=== PATIENT | male | born 1960 | race Caucasian/White ===

== ENCOUNTER 2016-11-23 08:46 | Inpatient (IN) | payer OTHER ==
[2016-11-23 09:09] VITALS: BMI 25.1
--- NOTE | 2016-11-23 12:10 | HP ---
CIWA Score - CIWA Score Nausea/Vomitin-No Nausea/No Vomiting Muscle Tremors: 4-Moderate,w/Arms Extend Anxiety: 5 Agitation: 4-Moderately Restless Paroxysmal Sweats: 1-Minimal Palms Moist Orientation: 0-Oriented Tacttile Disturbances: 3-Moderate Itch/Numb/Burn Auditory Disturbances: 0-None Visual Disturbances: 0-None Headache: 0-None Present CIWA-Ar Total Score: 17 Admission ROS S - HPI Chief Complaint: DETOX TX FOR XANAX AND ALCOHOL DEPENDENCE Allergies/Adverse Reactions: Allergies Allergy/AdvReac Type Severity Reaction Status Date / Time Fish Containing Products Allergy Severe UNSPECIFIED Verified 11/23/16 10:08 [Fish Product Derivatives] ALLERGY TO SEAFOOD shellfish derived Allergy Severe UNSPECIFIED Verified 11/23/16 10:08 ALLERGY TO SEAFOOD Seafood Allergy Severe Uncoded 11/23/16 10:08 History of Present Illness: 55 Y/O MALE WITH A HX XANAX AND ALCOHOL DEPENDENCE SEEKING DETOX TX. PREVIOUS TX EPISODE. 2 YEARS SOBRIETY IN THE PAST. - Ebola screening Have you traveled outside of the country in the last 21 days: No Have you had contact with anyone from an Ebola affected area: No Have you been sick,other than usual withdrawal symptoms: No - Review of Systems Constitutional: Changes in sleep EENT: reports: Blurred Vision (WEARS GLASSES) Respiratory: reports: No Symptoms reported Cardiac: reports: No Symptoms Reported GI: reports: No Symptoms Reported : reports: Frequency Musculoskeletal: reports: Back Pain, Joint Pain, Muscle Pain Integumentary: reports: Dryness, Lesions (FACIAL RASH/FLAKINESS), Pruritus, Rash (HX ECZEMA) Neuro: reports: Headache, Seizure, Tremors, Unsteady Gait, Dizziness Endocrine: reports: No Symptoms Reported Hematology: reports: No Symptoms Reported Psychiatric: reports: Orientated x3, Anxious, Depressed Other Systems: Reviewed and Negative Patient History - Patient Medical History Hx Anemia: No Hx Asthma: No Hx Chronic Obstructive Pulmonary Disease (COPD): No Hx Cardiac Disorders: No Hx Hypertension: No Hx Hypercholesterolemia: No Hx Seizures: Yes (many yrs ago) Hx Diabetes: No Hx Gastrointestinal Disorders: No Hx Genitourinary Disorders: No Hx Sexually Transmitted Disorders: No Hx Renal Disease (ESRD): No Hx Human Immunodeficiency Virus (HIV): No (NEGATIVE HX) Hx Hepatitis C: No Hx Depression: Yes (ON MED) Hx Suicide Attempt: Yes (OD ON PILLS X2;CUT WRIST X1;DENIES CURRENT IDEATIONS.) Hx Bipolar Disorder: Yes Hx Schizophrenia: Yes (SCHIZO-AFFECTIVE --VISUAL HALLUCINATIONS AND DELUSIONS) - Patient Surgical History Past Surgical History: Yes Hx Neurologic Surgery: No Hx Cataract Extraction: No Hx Cardiac Surgery: No Hx Lung Surgery: No Hx Breast Surgery: No Hx Breast Biopsy: No Hx Abdominal Surgery: No Hx Appendectomy: No Hx Cholecystectomy: No Hx Genitourinary Surgery: No Hx Orthopedic Surgery: No Other Surgical History: tendon repair, left hand in 2012 Anesthesia Reaction: No - PPD History Previous Implant?: Yes Documented Results: Negative w/o proof Implanted On Prior [facility] Admission?: Yes Date: 01/21/12 PPD to be Administered?: Yes - Reproductive History Patient is a Female of Child Bearing Age (11 -55 yrs old): No (MALE) Patient : (N/A) - Smoking Cessation Smoking history: Current every day smoker Have you smoked in the past 12 months: Yes Aproximately how many cigarettes per day: 7 Hx Chewing Tobacco Use: No Initiated information on smoking cessation: Yes 'Breaking Loose' booklet given: 11/23/16 - Substance & Tx. History Hx Alcohol Use: Yes (VODKA) Hx Substance Use: Yes (XANAX/COCAINE) Substance Use Type: Alcohol, Cocaine, Tranquilizers Hx Substance Use Treatment: Yes - Substances Abused Alcohol Route: Oral Frequency: Daily Amount used: vodka(1/2pint) Age of first use: 19 Date of Last Use: 11/22/16 Alprazolam (Xanax) Route: Oral Frequency: Daily Amount used: 2-3 stiks Age of first use: 52 Date of Last Use: 11/22/16 Cocaine Route: Inhalation Frequency: Daily Amount used: $20 Age of first use: 20 Date of Last Use: 11/21/16 Family Disease History - Family Disease History Family Disease History: Respiratory: Mother (COPD-) Admission Physical Exam S - Vital Signs Vital Signs: Vital Signs - 24 hr 11/23/16 09:06 Temperature 96.4 F L Pulse Rate 55 L Respiratory 20 Rate Blood Pressure 111/73 - Physical General Appearance: Yes: Moderate Distress, Irritable, Anxious HEENTM: Yes: EOMI, Normocephalic, GELACIO, Pharynx Normal Respiratory: Yes: Chest Non-Tender, Lungs Clear, Normal Breath Sounds, No Respiratory Distress Neck: Yes: No masses,lesions,Nodules, Supple, Trachea in good position Breast: Yes: Breast Exam Deferred Cardiology: Yes: Regular Rhythm, S1, S2, Bradycardia Abdominal: Yes: Normal Bowel Sounds, Non Tender, Flat, Soft Genitourinary: Yes: Other (N/C) Back: Yes: Within Normal Limits Musculoskeletal: Yes: full range of Motion, Gait Steady Extremities: Yes: Normal Range of Motion, Non-Tender 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 NML intact, Fully Oriented, Alert, Motor Strength 5/5 Integumentary: Yes: Dry, Warm Lymphatic: Yes: Within Normal Limits - Diagnostic (1) Seizure disorder Current Visit: Yes Status: Chronic (2) Alcohol dependence with uncomplicated withdrawal Current Visit: Yes Status: Acute (3) Sedative, hypnotic or anxiolytic dependence with withdrawal, uncomplicated Current Visit: Yes Status: Acute (4) Cocaine dependence, uncomplicated Current Visit: Yes Status: Acute Cleared for Admission [facility] - Detox or Rehab [facility] Level of Care: Medically Managed Detox Regimen/Protocol: Valium [facility] Breath Alcohol Content Breath Alcohol Content: 0 Urine Drug Screen - Results Drug Screen Negative: No Urine Drug Screen Results: ERVIN-Cocaine, BZO-Benzodiazepines
[2016-11-23] MEDS ORDERED: hydrOXYzine PAMOATE 50 MG CAPSULE (FP) PO PRN (12:28)
[2016-11-23] MEDS ORDERED: MENTHOL/PHENOL 1 EACH UD MM PRN (12:28)
[2016-11-23] MEDS ORDERED: diphenhydrAMINE HCL 50 MG CAPSULE PO PRN (12:28)
[2016-11-23] MEDS ORDERED: guaiFENesin/D-METHORPHAN HB 10 ML UNIT-DOSE CUPS PO PRN (12:28)
[2016-11-23] MEDS ORDERED: MAGNESIUM CITRATE 300 ML BOTTLE PO PRN (12:28)
[2016-11-23] MEDS ORDERED: NICOTINE POLACRILEX 2 MG GUM BC PRN (12:28)
[2016-11-23] MEDS ORDERED: MAG HYDROX/AL HYDROX/SIMETH 30 ML UNIT-DOSE CUP PO PRN (12:28)
[2016-11-23] MEDS ORDERED: P-EPHED 60MG/TRIPROLIDI 2.5MG TABLET PO PRN (12:28)
[2016-11-23] MEDS ORDERED: MAGNESIUM HYDROX 2400MG/30ML ORAL SUSPENSION 30 ML CUP PO PRN (12:28)
[2016-11-23] MEDS ORDERED: LOPERAMIDE HCL 2 MG CAPSULE PO PRN (12:28)
[2016-11-23] MEDS ORDERED: diazePAM 5 MG TABLET PO ONE (13:30)
[2016-11-23] MEDS: HYDROCORTISONE 1% TOPICAL CREAM 30 GM TUBE TP SCH ×2 (13:44→22:50)
[2016-11-23] MEDS: NICOTINE 14 MG/24 HOURS TOPICAL PATCH TD SCH (13:45)
[2016-11-23] MEDS: IBUPROFEN 400 MG TABLET (FP) PO PRN (13:47)
--- NOTE | 2016-11-23 14:10 | CONSULT ---
[facility] Psychiatric Consult - Data Date of interview: 11/23/16 Admission source: [facility] Identifying data: This is 55 years old male with history of Bipolar disorder, psychiatric hospitalization history, intoxicuated with: Alcohol, Copciane, Xanax and Nicotine Substance Abuse History: Smoking history: Current every day smoker. Have you smoked in the past 12 months: Yes. Aproximately how many cigarettes per day: 7. Hx Chewing Tobacco Use: No. Initiated information on smoking cessation: Yes. 'Breaking Loose' booklet given: 11/23/16. - Substance & Tx. History. Hx Alcohol Use: Yes (VODKA). Hx Substance Use: Yes (XANAX/COCAINE). Substance Use Type: Alcohol, Cocaine, Tranquilizers. Hx Substance Use Treatment: Yes. - Substances Abused. Alcohol. Route: Oral. Frequency: Daily. Amount used: vodka(1/2pint). Age of first use: 19. Date of Last Use: 11/22/16. Alprazolam (Xanax). Route: Oral. Frequency: Daily. Amount used: 2-3 stiks. Age of first use: 52. Date of Last Use: 11/22/16. Cocaine. Route: Inhalation. Frequency: Daily. Amount used: $20. Age of first use: 20. Date of Last Use: 11/21/16 Medical History: Seizure history, Psychiatric History: Patient reports history of Bipolar disorder with most recent psychioatric admission on 2012 at [facility] for safety, reports taking prior to admission: Seroquel 25mg po bid. Seroquel 100mg po qhs. Buspar 10mg po tid. Wellbutrin XL; 150mg poqd. Depakote 500mg po qhs. Gabapentin 200mg po bid Physical/Sexual Abuse/Trauma History: Denies Additional Comment: Seroquel 25mg po bid. Seroquel 100mg po qhs. Buspar 10mg po tid. Wellbutrin XL; 150mg poqd. Depakote 500mg po qhs. Gabapentin 200mg po bid Mental Status Exam - Mental Status Exam Alert and Oriented to: Person Cognitive Function: Fair Patient Appearance: Well Groomed Mood: Nervous, Anxious Affect: Labile Patient Behavior: Cooperative Speech Pattern: Excessive, Pressured Voice Loudness: Mildly Loud Thought Process: Goal Oriented Thought Disorder: Being Controlled Hallucinations: Denies Suicidal Ideation: Denies Homicidal Ideation: Denies Insight/Judgement: Fair Sleep: Fair Appetite: Weight loss Muscle strength/Tone: Normal Gait/Station: Normal Additional Comments: Seroquel 25mg po bid. Seroquel 100mg po qhs. Buspar 10mg po tid. Wellbutrin XL; 150mg poqd. Depakote 500mg po qhs. Gabapentin 200mg po bid Psychiatric Findings - Problem List ([place] 1, 2,3) (1) Alcohol dependence with uncomplicated withdrawal Current Visit: Yes Status: Acute (2) Cocaine dependence, uncomplicated Current Visit: Yes Status: Acute (3) Sedative, hypnotic or anxiolytic dependence with withdrawal, uncomplicated Current Visit: Yes Status: Acute (4) Seizure disorder Current Visit: Yes Status: Chronic (5) Bipolar disorder Current Visit: Yes Status: Acute - Initial Treatment Plan Initial Treatment Plan: Seroquel 25mg po bid. Seroquel 100mg po qhs. Buspar 10mg po tid. Wellbutrin XL; 150mg poqd. Depakote 500mg po qhs. Gabapentin 200mg po bid
[2016-11-23] MEDS: diazePAM 5 MG TABLET PO SCH ×2 (14:13→22:20)
[2016-11-23] MEDS: SELENIUM SULFIDE 2.5% LOTION 4 OZ. TP SCH (15:57)
[2016-11-23] MEDS: diazePAM 5 MG TABLET PO PRN (17:17)
[2016-11-23] MEDS: QUEtiapine FUMARATE 25 MG TABLET (FP) PO SCH (17:17)
[2016-11-23] MEDS: QUEtiapine FUMARATE 100 MG TABLET (FP) PO SCH (22:20)
[2016-11-23] MEDS: GABAPENTIN 100 MG CAPSULE (FP) PO SCH (22:20)
[2016-11-23] MEDS: THIAMINE HCL 100 MG TABLET (FP) PO SCH (22:20)
[2016-11-23] MEDS: DIVALPROEX SODIUM 500 MG TABLET E.C. PO SCH (22:21)
[2016-11-23] MEDS: busPIRone HCL 10 MG TABLET (FP) PO SCH (22:21)
[2016-11-23 22:36] LABS: URINE APPEARANCE CLEAR; URINE BILIRUBIN NEGATIVE (NEGATIVE); URINE BLOOD 1+ (NEGATIVE); URINE COLOR YELLOW; URINE GLUCOSE (UA) NEGATIVE (NEGATIVE); URINE KETONE NEGATIVE (NEGATIVE); URINE LEUK ESTERASE NEGATIVE (NEGATIVE); URINE NITRITE NEGATIVE (NEGATIVE); URINE PROTEIN NEGATIVE (NEGATIVE); URINE UROBILINOGEN NEGATIVE mg/dL (0.2-1.0)
[2016-11-23 23:07] LABS: URINE MUCUS RARE; URINE RBC 7 /hpf (0-3); URINE WBC 2 /hpf (3-5)
[2016-11-24] MEDS: diazePAM 5 MG TABLET PO SCH ×3 (05:35→22:26)
[2016-11-24] MEDS: busPIRone HCL 10 MG TABLET (FP) PO SCH ×3 (05:35→22:26)
[2016-11-24 09:43] LABS: HIV 1 & 2 AB NEGATIVE; HIV 1 AGp24 NEGATIVE
[2016-11-24] MEDS: PRENATAL VITAMINS W/ FOLIC ACID TABLET (FP) PO SCH (10:44)
[2016-11-24] MEDS: QUEtiapine FUMARATE 25 MG TABLET (FP) PO SCH ×2 (10:44→17:30)
[2016-11-24] MEDS: GABAPENTIN 100 MG CAPSULE (FP) PO SCH ×2 (10:44→22:26)
[2016-11-24] MEDS: SELENIUM SULFIDE 2.5% LOTION 4 OZ. TP SCH (10:45)
[2016-11-24] MEDS: NICOTINE 14 MG/24 HOURS TOPICAL PATCH TD SCH (10:45)
[2016-11-24] MEDS: HYDROCORTISONE 1% TOPICAL CREAM 30 GM TUBE TP SCH ×2 (10:45→22:55)
[2016-11-24] MEDS: IBUPROFEN 400 MG TABLET (FP) PO PRN (10:46)
[2016-11-24] MEDS: diazePAM 5 MG TABLET PO PRN ×2 (10:49→18:26)
--- NOTE | 2016-11-24 10:50 | PN ---
[facility] CIWA - CIWA Score Nausea/Vomitin Muscle Tremors: 3 Anxiety: 3 Agitation: 3 Paroxysmal Sweats: 1-Minimal Palms Moist Orientation: 1-Uncertain about Date Tacttile Disturbances: 1-Very Mild Itch/Numbness Auditory Disturbances: 1-Very Mild Visual Disturbances: 0-None Headache: 2-Mild CIWA-Ar Total Score: 18 S Progress Note (SOAP) Subjective: ALERT,IRRITABLE,ANXIOUS,INTERRUPTED SLEEP,TREMOR Objective: 11/24/16 10:48 Vital Signs Temperature 97.2 F L 11/24/16 06:00 Pulse Rate 52 L 11/24/16 06:00 Respiratory Rate 18 11/24/16 06:00 Blood Pressure 111/62 11/24/16 06:00 O2 Sat by Pulse Oximetry (%) EKG SINUS BRADYCARDIA 57/MIN NO CHEST PAIN,NO SOB,NO DIZZINESS Laboratory Last Values Urine Color Yellow 11/23/16 22:20 Urine Appearance Clear 11/23/16 22:20 Urine pH 5.0 (5.0-8.0) 11/23/16 22:20 Urine Protein Negative (NEGATIVE) 11/23/16 22:20 Urine Glucose (UA) Negative (NEGATIVE) 11/23/16 22:20 Urine Ketones Negative (NEGATIVE) 11/23/16 22:20 Urine Blood 1+ (NEGATIVE) H 11/23/16 22:20 Urine Nitrite Negative (NEGATIVE) 11/23/16 22:20 Urine Bilirubin Negative (NEGATIVE) 11/23/16 22:20 Urine Urobilinogen Negative mg/dL (0.2-1.0) 11/23/16 22:20 Ur Leukocyte Esterase Negative (NEGATIVE) 11/23/16 22:20 Urine RBC 7 /hpf (0-3) 11/23/16 22:20 Urine WBC 2 /hpf (3-5) 11/23/16 22:20 Ur Epithelial Cells Rare /hpf (FEW) 11/23/16 22:20 Urine Mucus Rare 11/23/16 22:20 HIV 1&2 Antibody Screen Negative 11/23/16 11:15 HIV P24 Antigen Negative 11/23/16 11:15 LABS PENDING Assessment: 11/24/16 10:49 WITHDRAWAL SYMPTOM Plan: CONTINUE DETOX
[2016-11-24 12:31] LABS: ALBUMIN 4.2 g/dl (3.4-5.0); ANION GAP 6 (8-16); CALCIUM 9.6 mg/dL (8.5-10.1); CO2 30 mmol/L (21-32); GLUCOSE,RANDOM 76 mg/dL (74-106); SGPT/ALT 23 U/L (12-78)
[2016-11-24 12:34] LABS: ALK PHOS 90 U/L (45-117); BILIRUBIN,TOTAL 0.5 mg/dL (0.2-1.0); MCH 31.6 pg (25.7-33.7); MCHC 33.3 g/dl (32.0-35.9); MEAN CELL VOLUME 94.8 fl (80-96); MEAN PLT VOLUME 8.6 fl (7.5-11.1); PLATELET COUNT 256 K/MM3 (134-434); RDW 13.8 % (11.9-15.9); SGOT/AST 21 U/L (15-37); TOT PROT 7.4 g/dl (6.4-8.2); WHITE BLOOD COUNT 6.4 K/mm3 (4.0-10.0)
[2016-11-24] MEDS: THIAMINE HCL 100 MG TABLET (FP) PO SCH (22:26)
[2016-11-24] MEDS: DIVALPROEX SODIUM 500 MG TABLET E.C. PO SCH (22:26)
[2016-11-24] MEDS: QUEtiapine FUMARATE 100 MG TABLET (FP) PO SCH (22:26)
[2016-11-25] MEDS: diazePAM 5 MG TABLET PO PRN ×2 (05:59→14:38)
[2016-11-25] MEDS: busPIRone HCL 10 MG TABLET (FP) PO SCH ×3 (05:59→22:06)
[2016-11-25] MEDS: PRENATAL VITAMINS W/ FOLIC ACID TABLET (FP) PO SCH (10:42)
[2016-11-25] MEDS: SELENIUM SULFIDE 2.5% LOTION 4 OZ. TP SCH (10:42)
[2016-11-25] MEDS: QUEtiapine FUMARATE 25 MG TABLET (FP) PO SCH ×2 (10:42→17:23)
[2016-11-25] MEDS: GABAPENTIN 100 MG CAPSULE (FP) PO SCH ×2 (10:42→22:05)
[2016-11-25] MEDS: diazePAM 5 MG TABLET PO SCH ×2 (10:42→22:06)
[2016-11-25] MEDS: HYDROCORTISONE 1% TOPICAL CREAM 30 GM TUBE TP SCH ×2 (10:43→22:58)
[2016-11-25] MEDS: NICOTINE 14 MG/24 HOURS TOPICAL PATCH TD SCH (10:43)
[2016-11-25] MEDS: IBUPROFEN 400 MG TABLET (FP) PO PRN (10:45)
--- NOTE | 2016-11-25 11:09 | PN ---
S CIWA - CIWA Score Nausea/Vomitin Muscle Tremors: 3 Anxiety: 3 Agitation: 2 Paroxysmal Sweats: 1-Minimal Palms Moist Orientation: 0-Oriented Tacttile Disturbances: 1-Very Mild Itch/Numbness Auditory Disturbances: 1-Very Mild Visual Disturbances: 0-None Headache: 2-Mild CIWA-Ar Total Score: 16 BHS Progress Note (SOAP) Subjective: ALERT,IRRITABLE,ANXIOUS,INTERRUPTED SLEEP,TREMOR,PAIN N THE BODY Objective: 11/25/16 11:08 Vital Signs Temperature 97.7 F 11/25/16 09:57 Pulse Rate 77 11/25/16 09:57 Respiratory Rate 18 11/25/16 09:57 Blood Pressure 112/79 11/25/16 09:57 O2 Sat by Pulse Oximetry (%) Laboratory Last Values WBC 6.4 K/mm3 (4.0-10.0) D 11/24/16 06:15 RBC 4.28 M/mm3 (4.00-5.60) 11/24/16 06:15 Hgb 13.5 GM/dL (11.7-16.9) 11/24/16 06:15 Hct 40.6 % (35.4-49) 11/24/16 06:15 MCV 94.8 fl (80-96) 11/24/16 06:15 MCH 31.6 pg (25.7-33.7) 11/24/16 06:15 MCHC 33.3 g/dl (32.0-35.9) 11/24/16 06:15 RDW 13.8 % (11.9-15.9) 11/24/16 06:15 Plt Count 256 K/MM3 (134-434) 11/24/16 06:15 MPV 8.6 fl (7.5-11.1) 11/24/16 06:15 Sodium 139 mmol/L (136-145) 11/24/16 06:15 Potassium 4.2 mmol/L (3.5-5.1) 11/24/16 06:15 Chloride 103 mmol/L (98-107) 11/24/16 06:15 Carbon Dioxide 30 mmol/L (21-32) 11/24/16 06:15 Anion Gap 6 (8-16) L 11/24/16 06:15 BUN 15 mg/dL (7-18) 11/24/16 06:15 Creatinine 1.0 mg/dL (0.7-1.3) 11/24/16 06:15 Creat Clearance w eGFR > 60 (>60) 11/24/16 06:15 Random Glucose 76 mg/dL (74-106) D 11/24/16 06:15 Calcium 9.6 mg/dL (8.5-10.1) 11/24/16 06:15 Total Bilirubin 0.5 mg/dL (0.2-1.0) 11/24/16 06:15 AST 21 U/L (15-37) D 11/24/16 06:15 ALT 23 U/L (12-78) 11/24/16 06:15 Alkaline Phosphatase 90 U/L (45-117) D 11/24/16 06:15 Total Protein 7.4 g/dl (6.4-8.2) 11/24/16 06:15 Albumin 4.2 g/dl (3.4-5.0) 11/24/16 06:15 Urine Color Yellow 11/23/16 22:20 Urine Appearance Clear 11/23/16 22:20 Urine pH 5.0 (5.0-8.0) 11/23/16 22:20 Ur Specific [place] >= 1.030 (1.005-1.025) H 11/23/16 22:20 Urine Protein Negative (NEGATIVE) 11/23/16 22:20 Urine Glucose (UA) Negative (NEGATIVE) 11/23/16 22:20 Urine Ketones Negative (NEGATIVE) 11/23/16 22:20 Urine Blood 1+ (NEGATIVE) H 11/23/16 22:20 Urine Nitrite Negative (NEGATIVE) 11/23/16 22:20 Urine Bilirubin Negative (NEGATIVE) 11/23/16 22:20 Urine Urobilinogen Negative mg/dL (0.2-1.0) 11/23/16 22:20 Ur Leukocyte Esterase Negative (NEGATIVE) 11/23/16 22:20 Urine RBC 7 /hpf (0-3) 11/23/16 22:20 Urine WBC 2 /hpf (3-5) 11/23/16 22:20 Ur Epithelial Cells Rare /hpf (FEW) 11/23/16 22:20 Urine Mucus Rare 11/23/16 22:20 HIV 1&2 Antibody Screen Negative 11/23/16 11:15 HIV P24 Antigen Negative 11/23/16 11:15 Assessment: 11/25/16 11:08 WITHDRAWAL SYMPTOM Plan: CONTINUE DETOX
--- NOTE | 2016-11-25 14:52 | EKG ---
Test Reason : Blood Pressure : / mmHG Vent. Rate : 057 BPM Atrial Rate : 057 BPM P-R Int : 138 ms QRS Dur : 108 ms QT Int : 414 ms P-R-T Axes : 048 069 059 degrees QTc Int : 402 ms SINUS BRADYCARDIA OTHERWISE NORMAL ECG NO PREVIOUS ECGS AVAILABLE Confirmed by SAQIB SOLIS MD ([id number]) on 11/25/2016 2:51:37 PM Referred By: Confirmed By:SAQIB SOLIS MD
[2016-11-25] MEDS: ACETAMINOPHEN 325 MG TABLET (FP) PO PRN ×2 (15:31→22:07)
[2016-11-25] MEDS: THIAMINE HCL 100 MG TABLET (FP) PO SCH (22:06)
[2016-11-25] MEDS: QUEtiapine FUMARATE 100 MG TABLET (FP) PO SCH (22:06)
[2016-11-25] MEDS: DIVALPROEX SODIUM 500 MG TABLET E.C. PO SCH (22:06)
[2016-11-26] MEDS: busPIRone HCL 10 MG TABLET (FP) PO SCH (05:13)
[2016-11-26] MEDS: diazePAM 5 MG TABLET PO PRN (05:14)
[2016-11-26 06:20] VITALS: BP 113/67; PULSE 58; TEMP 97.2
--- NOTE | 2016-11-26 09:01 | PN ---
[facility] Progress Note Note: Pt.was transferred from [facility] after a verbal altercation. This morning patient began to insult his peers creating an unsafe situation. Staff intervened but Mr. Roberto would not stop. Security was called and pt. was d/c for non- compliance with unit's rules. At the time of d/c he was medically stable.
--- NOTE | 2016-11-26 09:04 | DS ---
[facility] Detox Discharge Summary Admission Date: 11/23/16 Discharge Date: 11/26/16 - History Present History: Alcohol Dependence, Cocaine Dependence, Sedative Dependence Pertinent Past History: Mood disorder - Physical Exam Results Vital Signs: Vital Signs Temperature 97.2 F L 11/26/16 06:13 Pulse Rate 58 L 11/26/16 06:13 Respiratory Rate 16 11/26/16 06:13 Blood Pressure 113/67 11/26/16 06:13 O2 Sat by Pulse Oximetry (%) Pertinent Admission Physical Exam Findings: Withdrawal sx. Laboratory Last Values WBC 6.4 K/mm3 (4.0-10.0) D 11/24/16 06:15 RBC 4.28 M/mm3 (4.00-5.60) 11/24/16 06:15 Hgb 13.5 GM/dL (11.7-16.9) 11/24/16 06:15 Hct 40.6 % (35.4-49) 11/24/16 06:15 MCV 94.8 fl (80-96) 11/24/16 06:15 MCH 31.6 pg (25.7-33.7) 11/24/16 06:15 MCHC 33.3 g/dl (32.0-35.9) 11/24/16 06:15 RDW 13.8 % (11.9-15.9) 11/24/16 06:15 Plt Count 256 K/MM3 (134-434) 11/24/16 06:15 MPV 8.6 fl (7.5-11.1) 11/24/16 06:15 Sodium 139 mmol/L (136-145) 11/24/16 06:15 Potassium 4.2 mmol/L (3.5-5.1) 11/24/16 06:15 Chloride 103 mmol/L (98-107) 11/24/16 06:15 Carbon Dioxide 30 mmol/L (21-32) 11/24/16 06:15 Anion Gap 6 (8-16) L 11/24/16 06:15 BUN 15 mg/dL (7-18) 11/24/16 06:15 Creatinine 1.0 mg/dL (0.7-1.3) 11/24/16 06:15 Creat Clearance w eGFR > 60 (>60) 11/24/16 06:15 Random Glucose 76 mg/dL (74-106) D 11/24/16 06:15 Calcium 9.6 mg/dL (8.5-10.1) 11/24/16 06:15 Total Bilirubin 0.5 mg/dL (0.2-1.0) 11/24/16 06:15 AST 21 U/L (15-37) D 11/24/16 06:15 ALT 23 U/L (12-78) 11/24/16 06:15 Alkaline Phosphatase 90 U/L (45-117) D 11/24/16 06:15 Total Protein 7.4 g/dl (6.4-8.2) 11/24/16 06:15 Albumin 4.2 g/dl (3.4-5.0) 11/24/16 06:15 Urine Color Yellow 11/23/16 22:20 Urine Appearance Clear 11/23/16 22:20 Urine pH 5.0 (5.0-8.0) 11/23/16 22:20 Ur Specific [place] >= 1.030 (1.005-1.025) H 11/23/16 22:20 Urine Protein Negative (NEGATIVE) 11/23/16 22:20 Urine Glucose (UA) Negative (NEGATIVE) 11/23/16 22:20 Urine Ketones Negative (NEGATIVE) 11/23/16 22:20 Urine Blood 1+ (NEGATIVE) H 11/23/16 22:20 Urine Nitrite Negative (NEGATIVE) 11/23/16 22:20 Urine Bilirubin Negative (NEGATIVE) 11/23/16 22:20 Urine Urobilinogen Negative mg/dL (0.2-1.0) 11/23/16 22:20 Ur Leukocyte Esterase Negative (NEGATIVE) 11/23/16 22:20 Urine RBC 7 /hpf (0-3) 11/23/16 22:20 Urine WBC 2 /hpf (3-5) 11/23/16 22:20 Ur Epithelial Cells Rare /hpf (FEW) 11/23/16 22:20 Urine Mucus Rare 11/23/16 22:20 RPR Titer Nonreactive (NONREACTIVE) 11/24/16 06:15 HIV 1&2 Antibody Screen Negative 11/23/16 11:15 HIV P24 Antigen Negative 11/23/16 11:15 labs noted - Treatment Patient has Accepted a Rehab Referral to: Self help meetings - Medication Discharge Medications: Ambulatory Orders Bupropion HCl [Wellbutrin Xl -] 150 mg PO DAILY 11/23/16 Bupropion HCl [Wellbutrin Xl -] 150 mg PO DAILY #30 tab.sr.24h 11/23/16 Buspirone HCl [Buspar -] 10 mg PO TID 11/23/16 Buspirone HCl [Buspar -] 10 mg PO TID #90 tablet 11/23/16 Divalproex *ER* [Depakote *ER* -] 500 mg PO HS 11/23/16 Divalproex *ER* [Depakote *ER* -] 500 mg PO HS #30 tablet.sa 11/23/16 Gabapentin 200 mg PO BID #60 capsule 11/23/16 Gabapentin [Neurontin -] 200 mg PO BID 11/23/16 Hydrocortisone/Aloe Vera [Cortizone-10 1% Creme] 28 gm TP BID 11/23/16 Quetiapine Fumarate [Seroquel -] 25 mg PO BID 11/23/16 Quetiapine Fumarate [Seroquel -] 25 mg PO BID #60 tablet 11/23/16 Quetiapine Fumarate [Seroquel -] 100 mg PO HS 11/23/16 Quetiapine Fumarate [Seroquel] 100 mg PO HS #30 tablet 11/23/16 Tramadol HCl [Ultram] 50 mg PO Q8H 11/23/16 - Diagnosis (1) Alcohol dependence with uncomplicated withdrawal Status: Acute (2) Bipolar disorder Status: Acute (3) Cocaine dependence, uncomplicated Status: Acute (4) Sedative, hypnotic or anxiolytic dependence with withdrawal, uncomplicated Status: Acute (5) Seizure disorder Status: Chronic - AMA Did Patient Leave Against Medical Advice: No
[2016-11-27] MEDS ORDERED: diazePAM 5 MG TABLET PO SCH (10:00)
== END 2016-11-26 08:21 | disposition home or self-care (01) | DRG 774 ==
LOC: YASAS 08:46 → Y6N 12:37 → Y3N 11-25 22:40
PROVIDERS: ADMIT Internal Medicine; ATTEND Internal Medicine
PROC: HZ2ZZZZ Detoxification Services for Substance Abuse Treatment (ICD-10-PCS; principal; 2016-11-23)
DX: F13.230 Sedative, hypnotic or anxiolytic dependence with withdrawal, uncomplicated (principal); F10.230 Alcohol dependence with withdrawal, uncomplicated; F14.20 Cocaine dependence, uncomplicated; F17.210 Nicotine dependence, cigarettes, uncomplicated; F31.9 Bipolar disorder, unspecified; F91.8 Other conduct disorders; G40.909 Epilepsy, unspecified, not intractable, without status epilepticus; Z91.19 Patient's noncompliance with other medical treatment and regimen; Z91.013 Allergy to seafood; Z91.5 Personal history of self-harm
CPT/HCPCS: 36415; 80053; 81003; 81015; 85027; 86593; 87389; 93005; 93010